=== PATIENT | male | born 1990 | race Hispanic/Latino ===

== ENCOUNTER 2024-11-30 09:52 | Emergency (ER) | payer SELFPAY ==
[~2024-11-30] VITALS: Ht 175.3 cm; Wt 62.6 kg
[2024-11-30 10:42] LABS: BASOPHILS # (AUTO) 0.01 K/uL (0.00-0.20); BASOPHILS % (AUTO) 0.1 % (0.0-5.0); EOSINOPHILS # (AUTO) 0.03 K/uL (0.00-0.70); EOSINOPHILS % (AUTO) 0.3 % (0.0-8.0); HEMATOCRIT 40.1 % (42-54); IMMATURE GRANULOCYTE ABSOLUTE 0.03 K/uL (0-1); LYMPHOCYTES % (AUTO) 9.8 % (21.0-51.0); MEAN CORPUSCULAR HEMOGLOBIN 29.9 pg (27.0-33.0); MEAN CORPUSCULAR HGB CONC 33.4 g/dL (32.0-36.0); MEAN CORPUSCULAR VOLUME 89.5 fL (79-99); MONOCYTES # (AUTO) 0.7 K/uL (0.1-1.0); MONOCYTES % (AUTO) 6.6 % (3.0-13.0); NEUTROPHILS # (AUTO) 8.6 K/uL (1.8-7.7); NEUTROPHILS % (AUTO) 82.9 % (40.0-77.0); PLATELET COUNT (AUTO) 173 K/uL (130-400); RED BLOOD CELL COUNT(AUTO) 4.48 MIL/uL (4.50-6.20); RED CELL DISTRIBUTION WIDTH 12.6 % (11.0-15.5); WHITE BLOOD COUNT (AUTO) 10.3 K/uL (4.8-10.8)
[2024-11-30] MEDS: ondanSETRON 4MG INJ IVP ONE (10:47)
[2024-11-30] MEDS: 0.9%NACL 1000ML 1,000 ML IV ONE (10:47)
[2024-11-30] MEDS: ketOROlac 15MG/ML VIAL (15MG/ML) IV ONE (10:48)
[2024-11-30 10:49] LABS: CREATININE 1.1 mg/dL (0.5-1.3)
--- NOTE | 2024-11-30 12:00 | ERN ---
General Chief Complaint: Flank Pain Stated Complaint: RIGHT FLANK PAIN Time Seen by MD: 10:03 Time Seen by Midlevel: 10:03 Source: patient History of Present Illness Initial Comments Patient is a 34-year-old male with no significant past medical history presenting to the emergency department for evaluation of right flank pain that started four days ago and has progressively worsened. He does report an episode of blood-tinged urine yesterday. He also reports one episode of emesis. Denies any fever, chills, or any other symptoms today. Denies any past medical history of renal stones. Allergies: Coded Allergies: No Known Drug Allergies (Unverified Allergy, Unknown, 11/30/24) Home Meds Active Scripts Sulfamethoxazole/Trimethoprim (Bactrim Ds Tablet) 800 Mg-160 Mg Tablet, 1 TAB PO BID for 7 Days, #14 TAB 0 Refills Prov:EUGENE KIM 11/30/24 Ketorolac Tromethamine (Ketorolac Tromethamine) 10 Mg Tablet, 1 TAB PO TID for pain for 5 Days, #15 TAB 0 Refills Prov:EUGENE KIM 11/30/24 Tamsulosin HCl (Flomax) 0.4 Mg Cap.er.24h, 1 CAP PO DAILY for 14 Days, #14 CAP 0 Refills Prov:EUGENE KIM 11/30/24 Past Medical History Past Medical History: No Pertinent History Past Surgical History: None ROS Dictation CONSTITUTIONAL: Negative except for HPI HEAD/FACE: Negative except for HPI EENT: Negative except for HPI RESPIRATORY: Negative except for HPI GASTROINTESTINAL/ABDOMINAL: Negative except for HPI GENITOURINARY: Negative except for HPI MUSCULOSKELETAL: Negative except for HPI INTEGUMENTARY: Negative except for HPI NEUROLOGICAL/PSYCH: Negative except for HPI HEMATOLOGIC/LYMPHATIC: Negative except for HPI All Systems Negative, Except as noted above. 13 point review of systems assessed and all negative except for above. Physical Exam Physical Exam Dictation Vital Signs reviewed General Appearance: Alert, oriented x 3, no acute distress, well developed, nourished. Head and Face: non-traumatic. Eyes: PERRL, pink conjunctivas, eyelid no trauma, anterior chamber with arcus senilis. Ears: Pinnas intact and no signs of trauma or erythema ear canals clear and no discharge TM no erythema Nose: No discharge, no bleeding. Oropharynx: Mouth normal, tongue pink, pharynx clear,no erythema, tonsils no exudates, no abscesses noted, mucous membrane moist Neck: Supple, non-tender, no thyromegaly, no masses, no JVD, no bruits Breast:Deferred Chest:No tenderness, no crepitus, no paradoxical movement, no retractions Lungs:Clear, well-ventilated, symmetric, no rales, no wheezing, no rhonchi, no stridor, good breath sounds bilaterally Heart: Regular rate, regular rhythm, no murmur, no gallops Vascular: no peripheral edema, Abdomen: Soft, positive bowel sounds, nondistended, no guarding, Right CVA tenderness, no rebound, no masses no hepatomegaly, no splenomegaly, no De Dios's sign, no hernias. Rectal: Deferred Genital: Deferred Neurological: Normal speech, motor function intact, sensory function intact Musculoskeletal: Neck nontender, full range of motion, back nontender, full range of motion, Extremities: nontender, full range of motion Skin: Color pink, dry, no turgor, no rash, no lacerations, no abrasions, no contusions. Lymphatic: Deferred Results Laboratory and Microbiology Lab and Micro Result Laboratory Tests Test 11/30/24 10:32 11/30/24 12:00 White Blood Count 10.3 K/uL (4.8-10.8) Red Blood Count 4.48 MIL/uL (4.50-6.20) L Hemoglobin 13.4 g/dL (14.0-18.0) L Hematocrit 40.1 % (42-54) L Mean Corpuscular Volume 89.5 fL (79-99) Mean Corpuscular Hemoglobin 29.9 pg (27.0-33.0) Mean Corpuscular Hemoglobin Concent 33.4 g/dL (32.0-36.0) Red Cell Distribution Width 12.6 % (11.0-15.5) Platelet Count 173 K/uL (130-400) Mean Platelet Volume 10.4 fL (7.5-10.5) Immature Granulocyte % (Auto) 0.3 % (0-1) Neutrophils (%) (Auto) 82.9 % (40.0-77.0) H Lymphocytes (%) (Auto) 9.8 % (21.0-51.0) L Monocytes (%) (Auto) 6.6 % (3.0-13.0) Eosinophils (%) (Auto) 0.3 % (0.0-8.0) Basophils (%) (Auto) 0.1 % (0.0-5.0) Neutrophils # (Auto) 8.6 K/uL (1.8-7.7) H Lymphocytes # (Auto) 1.0 K/uL (1.0-4.8) Monocytes # (Auto) 0.7 K/uL (0.1-1.0) Eosinophils # (Auto) 0.03 K/uL (0.00-0.70) Basophils # (Auto) 0.01 K/uL (0.00-0.20) Absolute Immature Granulocyte (auto 0.03 K/uL (0-1) Nucleated Red Blood Cells 0.0 % (0.0-0.19) White Cell Morphology Comment See comments Sodium Level 137 mmol/L (136-145) Potassium Level 4.0 mmol/L (3.5-5.1) Chloride Level 96 mmol/L (101-111) L Carbon Dioxide Level 31 mmol/L (21-32) Blood Urea Nitrogen 14 mg/dL (7-18) Creatinine 1.1 mg/dL (0.5-1.3) Glomerular Filtration Rate Calc 91 mL/min (>90) Random Glucose 97 mg/dL (70-105) Total Calcium 9.5 mg/dL (8.5-10.1) Urine Color YELLOW (YELLOW) Urine Appearance CLEAR (CLEAR) Urine pH 5.5 (5.0-8.0) Urine Specific [place] 1.022 (1.001-1.031) Urine Protein 70 mg/dL (NEGATIVE) H Urine Glucose (UA) NEGATIVE mg/dL (NEGATIVE) Urine Ketones 40 mg/dL (NEGATIVE) H Urine Occult Blood LARGE (NEGATIVE) H Urine Nitrate NEGATIVE (NEGATIVE) Urine Bilirubin NEGATIVE mg/dL (NEGATIVE) Urine Urobilinogen 0.2 mg/dL (0.2-1.0) Urine Leukocyte Esterase 75 [place]/uL (NEGATIVE) H Urine RBC 11-25 /HPF (0-1) H Urine WBC 11-25 /HPF (0-1) H Urine Bacteria None /HPF (None Seen) Labs Reviewed?: Yes MDM MDM: Patient is a 34-year-old male with no significant past medical history presenting to the emergency department for evaluation of right flank pain that started four days ago and has progressively worsened. He does report an episode of blood-tinged urine yesterday. He also reports one episode of emesis. Denies any fever, chills, or any other symptoms today. Denies any past medical history of renal stones. On physical examination the patient appears to be in mild discomfort. He was right CVA tenderness. The remainder of his physical examination is unremarkable. Differential diagnosis includes UTI versus pyelonephritis versus kidney stone CBC shows no leukocytosis. Hemoglobin is stable at 13.4. Platelet count is 173 . Chemistries are unremarkable. Urinalysis is remarkable for leuk esterase occult blood and urine white blood cells. CT scan of the abdomen and pelvis reveals a 2 mm right renal stone at the UV junction with mild hydroureter. Kidney function is normal. Patient was given one dose of Flomax in the emergency department along with ketorolac and ceftriaxone. Patient was given 1 L of IV fluids pain medication antibiotics in the emergency department. On repeat examination patient reports feeling significantly improved. We will discharged home with outpatient follow up. Differential diagnosis: Urinary tract infection, pyelonephritis, ureter stone There are no social concerns with this patient. Prescription drug management Prescriptions will include: Bactrim, Flomax, ketorolac Medical management and examination interpretation discussions were had by me with other qualified healthcare professionals as indicated for the patient's care. ED Course Orders Procedure Category Date Status Time Cbc With Differential LAB 11/30/24 Complete 10:25 Basic Metabolic Panel LAB 11/30/24 Complete 10:25 Urinalysis Profile LAB 11/30/24 Complete 10:25 Ct Abdomen/Pelvis W/O CT 11/30/24 Resulted Contrast 10:25 0.9%Nacl 1000ml (Ns PHA 11/30/24 Complete 1000ml) 10:30 Ondansetron 4mg Inj PHA 11/30/24 Complete (Zofran 4mg Inj) 10:30 Ketorolac PHA 11/30/24 Complete Tromethamine 15mg/Ml 10:30 Culture Urine ZIA 11/30/24 In Process 12:18 Tamsulosin Hcl PHA 11/30/24 Complete (Flomax) 13:00 Ceftriaxone 1g Vial PHA 11/30/24 Complete (Rocephine 1g Inj) 13:00 Current Medications Medications (Trade) Dose Ordered Sig/Bhavna Route PRN Reason Start Time Stop Time Status Last Admin Dose Admin Ceftriaxone Sodium (ROCEphine 1G INJ) 1 gm ONCE ONCE IVPB 11/30/24 13:00 11/30/24 13:01 DC 11/30/24 13:02 Ketorolac Tromethamine (toRADol) 15 mg ONCE ONCE IV 11/30/24 10:30 11/30/24 10:31 DC 11/30/24 10:48 Ondansetron HCl (zoFRAN 4MG INJ) 4 mg ONCE ONCE IVP 11/30/24 10:30 11/30/24 10:31 DC 11/30/24 10:47 Sodium Chloride 1,000 ml @ 0 mls/hr ONCE ONCE IV 11/30/24 10:30 11/30/24 10:31 DC 11/30/24 10:47 Tamsulosin HCl (FloMAX) 0.4 mg ONCE ONCE PO 11/30/24 13:00 11/30/24 13:01 DC 11/30/24 13:02 Vital Signs Date Time Temp Pulse Resp B/P (MAP) Pulse Ox O2 Delivery O2 Flow Rate FiO2 11/30/24 13:19 99.0 62 20 131/95 100 Room Air* 0 21 11/30/24 09:53 99.1 60 20 134/95 100 Room Air [place] [id number] [address] IMAGING REPORT Signed PATIENT: YAN GRECO MR#: [id number] : 1990 SEX: M AGE: 34 LOCATION: ED ORDER 1026 STATUS: REG ER REPORT#: [id number] SERVICE 1025 REASON: r/o flank pain r/o ureter stone ORDERING PHYSICIAN: EUGENE KIM PROCEDURE: ABD PEL WO - CT ABDOMEN/PELVIS W/O CONTRAST CT ABDOMEN/PELVIS W/O CONTRAST HISTORY: Mass COMPARISON: None TECHNIQUE: Multiple sequential axial images of the abdomen and pelvis were obtained from the dome of the diaphragm through symphysis pubis. Patient was not given contrast through intravenous route. Oral contrast was not given. FINDINGS: No pleural effusion is seen bilaterally. There is no evidence of parenchymal disease or pulmonary nodule of the visualized lower lungs. Degenerative changes of the thoracolumbar spine are present. The heart is not enlarged. Liver measures 16 cm. The liver, spleen, adrenal glands and pancreas are unremarkable. No hydronephrosis is seen on the left. There is mild right hydronephrosis with 2 mm renal stone in the right UV junction. Fecal material is seen in the colon. There are normal size retroperitoneal and mesenteric lymph nodes. No ascites is seen. Atherosclerotic changes are present. Pelvic sidewalls are symmetric bilaterally. Bladder is moderately distended with apparent wall thickening. IMPRESSION: 1. There is mild right hydronephrosis with 2 mm renal stone in the right UV junction. CT was performed with one or more following dose reduction techniques: automated exposure control, adjustment of the mA and kv according to patient's size, or use of a iterative reconstruction technique. DICTATED BY: IVON ARANGO MD DATE: 11/30/24 123 ELECTRONICALLY SIGNED BY: IVON ARANGO MD DATE: 11/30/24 123 DX & DISP Disposition: Discharge Departure Impression: Primary Impression: Right renal stone Condition: Stable Scripts Sulfamethoxazole/Trimethoprim (Bactrim Ds Tablet) 800 Mg-160 Mg Tablet 1 TAB PO BID for 7 Days, #14 TAB 0 Refills Prov: EUGENE KIM 11/30/24 Ketorolac Tromethamine (Ketorolac Tromethamine) 10 Mg Tablet 1 TAB PO TID for pain for 5 Days, #15 TAB 0 Refills Prov: EUGENE KIM 11/30/24 Tamsulosin HCl (Flomax) 0.4 Mg Cap.er.24h 1 CAP PO DAILY for 14 Days, #14 CAP 0 Refills Prov: EUGENE KIM 11/30/24 Referrals: SELF,REFERRAL (PCP) DL DECKER MD, KENNETH A MD Time of Disposition: 13:10 I have reviewed the case, and I agree with, Diagnosis and Plan I performed the substantive portion of the visit. I have reviewed and personally made and approve the management plan that is documented in the note by myself or the TANISHA. I acknowledge for responsibility for the patient's management plan. EUGENE KIM Nov 30, 2024 12:00 ZAKIA GALLEGO DO Dec 01, 2024 08:07
[2024-11-30 12:12] LABS: APPEARANCE,URINE CLEAR (CLEAR); BILIRUBIN,URINE NEGATIVE (NEGATIVE); COLOR,URINE YELLOW (YELLOW); GLUCOSE, URINE (UA) NEGATIVE (NEGATIVE); KETONES,URINE 40 mg/dL (NEGATIVE); LEUKOCYTE ESTERASE ,URINE 75 Leu/uL (NEGATIVE); NITRATE,URINE NEGATIVE (NEGATIVE); OCCULT BLOOD,URINE LARGE (NEGATIVE); PH,URINE 5.5 (5.0-8.0); PROTEIN,URINE 70 mg/dL (NEGATIVE); UROBILINOGEN,URINE 0.2 mg/dL (0.2-1.0)
[2024-11-30 12:16] LABS: ADD UA MICROSCOPIC YES
--- NOTE | 2024-11-30 12:37 | HMCIMG ---
CT ABDOMEN/PELVIS W/O CONTRAST HISTORY: Mass COMPARISON: None TECHNIQUE: Multiple sequential axial images of the abdomen and pelvis were obtained from the dome of the diaphragm through symphysis pubis. Patient was not given contrast through intravenous route. Oral contrast was not given. FINDINGS: No pleural effusion is seen bilaterally. There is no evidence of parenchymal disease or pulmonary nodule of the visualized lower lungs. Degenerative changes of the thoracolumbar spine are present. The heart is not enlarged. Liver measures 16 cm. The liver, spleen, adrenal glands and pancreas are unremarkable. No hydronephrosis is seen on the left. There is mild right hydronephrosis with 2 mm renal stone in the right UV junction. Fecal material is seen in the colon. There are normal size retroperitoneal and mesenteric lymph nodes. No ascites is seen. Atherosclerotic changes are present. Pelvic sidewalls are symmetric bilaterally. Bladder is moderately distended with apparent wall thickening. IMPRESSION: 1. There is mild right hydronephrosis with 2 mm renal stone in the right UV junction. CT was performed with one or more following dose reduction techniques: automated exposure control, adjustment of the mA and kv according to patient's size, or use of a iterative reconstruction technique.
[2024-11-30] MEDS: tamSULOsin HCL 0.4 MG CAP.ER.24H PO ONE (13:02)
[2024-11-30] MEDS: cefTRIAXone 1G VIAL IVPB ONE (13:02)
[2024-11-30 13:07] LABS: MUCUS,URINE RARE LPF (None Seen)
[2024-11-30] MEDS ORDERED: TAMS-1 PO (13:12)
[2024-11-30] MEDS ORDERED: KETO10TA2 PO (13:12)
[2024-11-30] MEDS ORDERED: SULF1TAB42 PO (13:12)
[2024-11-30 13:19] VITALS: BP 131/95; PULSE 62; RESP 20; TEMP 99; O2SAT 100
== END 2024-11-30 13:26 | disposition home or self-care (01) ==
LOC: EDH 09:52 → EDBD 09:52 → EDH 13:26
DX: N13.2 Hydronephrosis with renal and ureteral calculous obstruction (principal); Z79.899 Other long term (current) drug therapy
CPT/HCPCS: 99285; 74176; 96365; 96375; 96361; 80048; 85025; 87086; 81001; 36415; J1885; J7030; J0696; J2405